=== PATIENT | female | born 1960 | race Caucasian/White ===

== ENCOUNTER 2017-05-13 14:05 | Emergency (ER) | payer OTHER ==
[~2017-05-13] VITALS: Ht 157.5 cm; Wt 72.6 kg
--- NOTE | 2017-05-13 15:24 | ED MVC/FALL/TRAUMA COMPLAINT ---
History of Present Illness General Chief Complaint: Low Back Pain/Injury Stated Complaint: LOWER BACK AND LEG PAIN Source: patient, family, old records Exam Limitations: no limitations Vital Signs & Intake/Output Vital Signs & Intake/Output Vital Signs Date Time Temp Pulse Resp B/P B/P Pulse O2 O2 Flow FiO2 Mean Ox Delivery Rate 05/13 1729 96.4 72 24 150/78 05/13 1436 99 Room Air 05/13 1411 97.5 80 20 135/84 98 Room Air Allergies Coded Allergies: No Known Allergies (05/13/17) Reconcile Medications Budesonide/Formoterol Fumarate (Symbicort 160-4.5 Mcg Inhaler) 160 MCG-4.5 MCG/ ACTUATION HFA.AER.AD 2 PUF INH BID ASTHMA (Reported) Carvedilol 6.25 MG TABLET 1 TAB PO BID BP (Reported) Cetirizine HCl (Zyrtec) 10 MG TABLET 1 TAB PO DAILY ALLERGIES (Reported) Cyclobenzaprine HCl (Unknown Strength) TABLET (Unknown Dose) UNKNOWN ( Reported) Diazepam (Valium) 5 MG TABLET 1 TAB PO Q6P PRN muscle spasm Diclofenac Sodium (Voltaren) 1 % GEL..GRAM. 1 GM TOP BID PRN PAIN (Reported) apply to affected area(s) Duloxetine HCl 60 MG CAPSULE.DR 1 CAP PO DAILY MENTAL HEALTH (Reported) Hydrochlorothiazide 25 MG TABLET 1 TAB PO DAILY BP (Reported) Ibuprofen 600 MG TABLET 1 TAB PO Q6PRN PRN pain with food Losartan Potassium 100 MG TABLET 1 TAB PO DAILY BP (Reported) Meloxicam (Unknown Strength) TABLET (Unknown Dose) UNKNOWN (Reported) Naproxen/Esomeprazole Mag (Vimovo Dr 500-20 MG Tablet) 500 MG-20 MG TAB.IR.DR 1 TAB PO BID PAIN (Reported) Tramadol HCl 50 MG TABLET 1-2 TAB PO Q6P PRN severe pain Triage Note: PT C/O LOWER BACK PAIN. STATES SHE HAS BEEN GO[place] [facility] [place]. ON FRIDAY PAIN BECAME WORSE AND RIGHT LEG WAS STARTING TO GIVE OUT. PAIN GOING DOWN RIGHT LEG Triage Nurses Notes Reviewed? yes Onset: Last week Duration: day(s):, constant, continues in ED, getting worse Timing: recent history Severity: severe Injuries/Fall Location: no injury Method of Injury: unknown Loss of Consciousness: no loss of consciousness Modifying Factors: Improves With: rest. Worsens With: exercise, movement, palpation. Associated Symptoms: muscle spasms, trouble walking LMP (ages 10-50): post menopausal : No Patient currently breastfeeds: No HPI: Patient is undergoing physical therapy for right low back pain. Several days prior to admission after therapy she complains of increased sharp constant right low back pain moderate to severe worsening movement turning bending associated with numbness and tingling and pain radiating to the buttock right upper and lower leg. She denies fever chills nausea vomiting diarrhea abdominal pain chest pain shortness breath headache dysuria rash bleeding change in bowel bladder habit change in motor sensory function Past History Travel History Traveled to [place] past 21 day No Medical History Any Pertinent Medical History? none Cardiovascular: hypertension Respiratory: SEASONAL ALLERGIES Psychiatric: anxiety, depression Surgical History Surgical History: non-contributory Psychosocial History What is your primary language [place] Tobacco Use: Quit >30 days ago ETOH Use: occasional use Illicit Drug Use: denies illicit drug use Family History Hx Contributory? No Review of Systems Review of Systems Constitutional: Reports: no symptoms. Eyes: Reports: no symptoms. Ears, Nose, Throat, Mouth: Reports: no symptoms. Respiratory: Reports: no symptoms. Cardiovascular: Reports: no symptoms. Gastrointestinal/Abdominal: Reports: no symptoms. Genitourinary: Reports: no symptoms. Musculoskeletal: Reports: see HPI, back pain. Skin: Reports: no symptoms. Neurological/Psychological: Reports: see HPI, numbness. All Other Systems: Reviewed and Negative Physical Exam Physical Exam General Appearance: well developed/nourished, alert, awake, anxious, moderate distress, obese Head: atraumatic, normal appearance Eyes: Bilateral: normal appearance, PERRL, EOMI, normal inspection. Ears, Nose, Throat, Mouth: hearing grossly normal, moist mucous membrane Neck: normal inspection, supple, full range of motion, normal alignment Respiratory: normal breath sounds, chest non-tender, no respiratory distress, quiet respiration, lungs clear Cardiovascular: regular rate/rhythm, normal peripheral pulses, norml femoral pulses equa Peripheral Pulses: 4+ carotid (R), 4+ carotid (L) Gastrointestinal: normal bowel sounds, soft, non-tender, no organomegaly Back: normal inspection, decreased range of motion, no vertebral tenderness Extremities: normal range of motion, no ligament instability Neurologic/Psych: no motor/sensory deficits, awake, alert, oriented x 3, normal gait, normal mood/affect, 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 No Severe Sepsis Present: No Septic Shock Present: No Progress Differential Diagnosis: C/T/L spine injury, spinal cord injury Plan of Care: Orders Procedure Date/time Status CT LUMB SPINE WO IV CONTRAST 05/13 1526 Active Diagnostic Imaging: Viewed by Me: CT Scan. Discussed w/RAD: CT Scan. Radiology Impression: 1. No acute fracture or subluxation of the lumbar spine. 2. Moderate multilevel degenerative disc disease of the lumbar spine, most significant at L1-L2 and L4-L5. 3. Multilevel facet arthrosis of the lumbar spine, as detailed above. 4. Degenerative changes involving the posterior spinous processes of L3 and L4. This may reflect sequela of chronic interspinous bursitis. 5. Bilateral facet arthrosis, ligamentum flavum redundancy and posterior disc bulges contributing to varying degrees of neuroforaminal narrowing and spinal canal stenosis, as described above. Departure Departure Time of Disposition: 1745 Disposition: HOME OR SELF CARE Condition: Stable Clinical Impression Primary Impression: Sciatica of right side associated with disorder of lumbar spine Secondary Impressions: Facet arthropathy, lumbar, Spinal stenosis of lumbar region Referrals: ARIANA WISE MD (PCP/Family) Departure Forms: Customer Survey General Discharge Information Prescriptions: Current Visit Scripts Ibuprofen 1 TAB PO Q6PRN PRN pain #50 TAB with food Diazepam (Valium) 1 TAB PO Q6P PRN muscle spasm #30 TAB Tramadol HCl 1-2 TAB PO Q6P PRN severe pain #30 TAB
[2017-05-13] MEDS ORDERED: DULOXETINE HCL60 MG PO (15:27)
[2017-05-13] MEDS ORDERED: LOSARTAN POTAS100 M1 PO (15:27)
[2017-05-13] MEDS ORDERED: HYDROCHLOROTHIA25 M1 PO (15:27)
[2017-05-13] MEDS ORDERED: CARVEDILOL6.25 M1 PO (15:27)
[2017-05-13] MEDS ORDERED: ZYRTEC10 M3 PO (15:28)
[2017-05-13] MEDS ORDERED: VIMOVO DR 500-1 EACH PO (15:28)
[2017-05-13] MEDS ORDERED: SYMBICORT 16010.2 GM INH (15:29)
[2017-05-13] MEDS ORDERED: VOLTAREN100 GM TOP (15:30)
[2017-05-13] MEDS ORDERED: MELOXICAM15 M1 (15:30)
[2017-05-13] MEDS ORDERED: CYCLOBENZAPRINE10 M1 (15:30)
[2017-05-13 17:29] VITALS: BP 150/78
--- NOTE | 2017-05-13 17:30 | CT SCAN REPORT ---
EXAMINATION: CT LUMBAR SPINE WITHOUT CONTRAST CLINICAL INFORMATION: Right lower back pain radiating to the thigh in abdomen. COMPARISON: None. TECHNIQUE: Helical non-contrast CT images were obtained through the lumbar spine and 1.25 and 2.5 mm axial reconstructions were reviewed along with sagittal and coronal MPRs. DLP: 666 mGy-cm FINDINGS: Noncontrast CT of the lumbar spine demonstrates five nonrib-bearing lumbar vertebral bodies. Evaluation of the lumbar spine demonstrates moderate degenerative changes of the lumbar spine, characterized by intervertebral disc space narrowing, endplate sclerosis and juxta marginal endplate osteophyte formation. Degenerative changes are most significant at L1-L2 and L4-L5. No acute fracture or subluxation of the lumbar spine is identified. There are moderate multilevel degenerative changes of the facets of the lumbar spine, most significant along the left facets of L4 and L5. Degenerative changes are also visualized involving the posterior spinous process of L3 and L4. Within this region, there are cortical erosions, patchy sclerosis of the posterior spinous processes of L3 and L4 with surrounding soft tissue. Vertebral body heights appear grossly preserved. Evaluation of the individual spinal levels demonstrates: T12-L1: No significant neuroforaminal narrowing or spinal canal stenosis. L1-L2: Concentric disc bulge with mild bilateral neuroforaminal narrowing. No significant spinal canal stenosis. L2-L3: Bilateral facet arthrosis without significant neuroforaminal narrowing or spinal canal stenosis. L3-L4: Bilateral facet arthrosis, ligamentum flavum redundancy and concentric disc bulge contribute to mild bilateral neuroforaminal narrowing and mild spinal canal stenosis. L4-L5: Posterior disc protrusion and bilateral facet arthrosis contributing to moderate to severe left-sided neuroforaminal narrowing, moderate right-sided neuroforaminal narrowing and mild to moderate spinal canal stenosis. L5-S1: No significant neuroforaminal narrowing or spinal canal stenosis. IMPRESSION: 1. No acute fracture or subluxation of the lumbar spine. 2. Moderate multilevel degenerative disc disease of the lumbar spine, most significant at L1-L2 and L4-L5. 3. Multilevel facet arthrosis of the lumbar spine, as detailed above. 4. Degenerative changes involving the posterior spinous processes of L3 and L4. This may reflect sequela of chronic interspinous bursitis. 5. Bilateral facet arthrosis, ligamentum flavum redundancy and posterior disc bulges contributing to varying degrees of neuroforaminal narrowing and spinal canal stenosis, as described above.
[2017-05-13] MEDS ORDERED: VALIUM5 M2 PO (17:48)
[2017-05-13] MEDS ORDERED: TRAMADOL HCL50 M1 PO (17:48)
[2017-05-13] MEDS ORDERED: IBUPROFEN600 M1 PO (17:48)
== END 2017-05-13 18:02 ==
LOC: ERH 14:05
DX: M54.41 Lumbago with sciatica, right side (principal); M48.06 Spinal stenosis, lumbar region; M46.96 Unspecified inflammatory spondylopathy, lumbar region
CPT/HCPCS: 96374; 96375; J0131; J3360